=== PATIENT | male | born 1995 | race Caucasian/White ===

== ENCOUNTER 2022-05-09 21:51 | Emergency (ER) | payer BC ==
[~2022-05-09] VITALS: Ht 172.7 cm; Wt 70.3 kg
[2022-05-09] MEDS ORDERED: DOXYCYCLINE HY100 MG PO (22:49)
== END 2022-05-09 22:53 | disposition home or self-care (01) ==
LOC: ER 21:58
DX: L03.116 Cellulitis of left lower limb (principal); F17.200 Nicotine dependence, unspecified, uncomplicated; F15.10 Other stimulant abuse, uncomplicated; B20 Human immunodeficiency virus [HIV] disease; Z79.899 Other long term (current) drug therapy
CPT/HCPCS: 99282